=== PATIENT | female | born 1985 | race Caucasian/White ===

== ENCOUNTER 2018-06-07 23:25 | Emergency (ER) | payer OTHER ==
[2018-06-07] MEDS ORDERED: Ondansetron ODT TAB* 4 MG PO ONE (23:49)
[2018-06-07] MEDS ORDERED: NS 0.9% 1000 ML** 1,000 ML IV ONE (23:54)
[2018-06-07] MEDS ORDERED: Metoclopramide IV* 5 MG/ML 2 ML VIAL IV ONE (23:54)
--- NOTE | 2018-06-08 00:11 | ED ---
Nausea/Vomiting/Diarrhea HPI - HPI Summary HPI Summary: Patient presents of sudden onset nausea vomiting diarrhea and mild abdominal cramping with bowel movement starting this afternoon at 5 PM. Abdominal pain occurs just prior to need for bowel movement and is resolved with bowel movement. Complains of pain with urination starting today. Patient states she started taking amoxicillin this morning for ear infection, states she has taken it before without reaction. Family has had same food without reaction. States vomiting and diarrhea every 20 minutes, unable to hold down solids or fluids. Denies fever, sore throat, SILVERIO, neck stiffness, CP, SOB, vaginal symptoms. LMP active now. Medical history is none. Abdominal surgical history is none. - History of Current Complaint Chief Complaint: EDNauseaVomitDiarrh Stated Complaint: NAUSEA/VOMITING Time Seen by Provider: 06/07/18 23:46 Hx Obtained From: Patient Onset/Duration: Sudden Onset Severity Initially: Moderate Severity Currently: Moderate Pain Intensity: 8 Pain Scale Used: 0-10 Numeric Location: Diffuse Character: Cramping Aggravating Factor(s): Nothing Alleviating Factor(s): Nothing Vomiting Frequency: Every 15-60 minutes Vomiting Characteristics: Nonbilious Diarrhea Frequency: Every 15-60 minutes Diarrhea Characteristics: Watery - Allergies/Home Medications Allergies/Adverse Reactions: Allergies Allergy/AdvReac Type Severity Reaction Status Date / Time Sulfa (Sulfonamide Allergy Rash Verified 06/07/18 23:29 Antibiotics) Home Medications: Home Medications Amoxicillin PO (*) [Amoxicillin 875 MG (*)] 875 mg PO BID 06/08/18 [History Confirmed 06/08/18] Sertraline* [Zoloft*] 50 mg PO DAILY 06/08/18 [History Confirmed 06/08/18] PMH/Surg Hx/FS Hx/Imm Hx Endocrine/Hematology History: Denies: Hx Anticoagulant Therapy Cardiovascular History: Denies: Hx Cardiac Arrest History: Denies: Hx Dialysis Sensory History: Denies: Hx Eye Prosthesis Opthamlomology History: Denies: Hx Legally Blind EENT History: Denies: Hx Deafness Neurological History: Denies: Hx Dementia Psychiatric History: Denies: Hx Autism Infectious Disease History: No Infectious Disease History: Denies: Traveled Outside the [place] in Last 30 Days Review of Systems Constitutional: Negative Eyes: Negative ENT: Negative Cardiovascular: Negative Respiratory: Negative Positive: Abdominal Pain, Vomiting, Diarrhea, Nausea Positive: burning Musculoskeletal: Negative Skin: Negative Neurological: Negative Psychological: Normal All Other Systems Reviewed And Are Negative: Yes Physical Exam - Summary Physical Exam Summary: Abdomen mildly tender diffusely. Physical exam otherwise unremarkable. Triage Information Reviewed: Yes Vital Signs On Initial Exam: Initial Vitals Temp Pulse Resp BP Pulse Ox 99.6 F 110 20 112/77 98 06/07/18 23:27 06/07/18 23:27 06/07/18 23:27 06/07/18 23:27 06/07/18 23:27 Vital Signs Reviewed: Yes Appearance: Positive: Well-Appearing Skin: Positive: Warm Head/Face: Positive: Normal Head/Face Inspection Eyes: Positive: Normal Neck: Positive: Supple Respiratory/Lung Sounds: Positive: Clear to Auscultation Cardiovascular: Positive: Normal Abdomen Description: Positive: Other: Musculoskeletal: Positive: Normal Neurological: Positive: Normal Psychiatric: Positive: Normal AVPU Assessment: Alert - Bernie Coma Scale Best Eye Response: 4 - Spontaneous Best Motor Response: 6 - Obeys Commands Best Verbal Response: 5 - Oriented Coma Scale Total: 15 Diagnostics - Vital Signs Vital Signs Temp Pulse Resp BP Pulse Ox 06/07/18 23:27 99.6 F 110 20 112/77 98 - Laboratory Result Diagrams: 06/08/18 00:12 06/08/18 00:12 Lab Statement: Any lab studies that have been ordered have been reviewed, and results considered in the medical decision making process. Naus/Vom/Diarrhea Course/Dx - Course Course Of Treatment: Patient presents of sudden onset nausea vomiting diarrhea and mild abdominal cramping with bowel movement starting this afternoon at 5 PM. Abdominal pain occurs just prior to need for bowel movement and is resolved with bowel movement. Complains of pain with urination starting today. Patient states she started taking amoxicillin this morning for ear infection, states she has taken it before without reaction. Family has had same food without reaction. States vomiting and diarrhea every 20 minutes, unable to hold down solids or fluids. Denies fever, sore throat, SILVERIO, neck stiffness, CP, SOB, vaginal symptoms. LMP active now. Medical history is none. Abdominal surgical history is none. Physical exam:Abdomen mildly tender diffusely. Physical exam otherwise unremarkable. Mildly tachycardic at 110. Vital signs otherwise unremarkable. WBC 11.1. Left foot was unremarkable. Patient nausea controlled with Reglan 10 mg IV. 2 L normal saline given. Patient states she feels better. Rx for Zofran. Rx for azithromycin as patient feels may be reaction to the amoxicillin she started today. - Differential Dx/Diagnosis Provider Diagnosis: Nausea vomiting and diarrhea Discharge - Sign-Out/Discharge Documenting (check all that apply): Patient Departure Patient Received Moderate/Deep Sedation with Procedure: No - Discharge Plan Condition: Stable Disposition: HOME Prescriptions: Azithromycin 250 mg PO DAILY 5 Days #6 tablet Ondansetron ODT TAB* [Zofran 4 MG Odt TAB*] 4 mg PO Q8H PRN 4 Days #14 tab.odt PRN Reason: Nausea Patient Education Materials: Acute Nausea and Vomiting (ED), Acute Diarrhea (ED ), Dehydration (ED) Referrals: Daniel Nye MD [Primary Care Provider] - Additional Instructions: Drink plenty of fluids to maintain hydration. Be Zofran as directed for nausea. Follow-up with primary care. Return to the ED for any new or worsening symptoms. - Billing Disposition and Condition Condition: STABLE Disposition: Home
[2018-06-08 00:21] LABS: ABS Basophils 0 10^3/ul (0-0.2); ABS Eosinophils 0.1 10^3/ul (0-0.6); ABS Lymphocytes 0.3 10^3/ul (1.0-4.8); ABS Monocytes 0.3 10^3/ul (0-0.8); ABS Neutrophils 10.4 10^3/ul (1.5-7.7); ABS Nucleated RBC 0 10^3/ul; Eosinophil % 0.5 %; Hematocrit 38 % (35-47); Hemoglobin 12.8 g/dl (12.0-16.0); Lymphocyte % 2.3 %; Mean Corpuscular HGB Conc 34 g/dl (31-36); Mean Corpuscular Hemoglobin 30 pg (27-31); Mean Corpuscular Volume 88 fL (80-97); Mean Platelet Volume 7.6 fL (7.4-10.4); Nucleated Red Blood Cells % 0; Platelet Count 835 10^3/ul (150-450); Red Blood Count 4.36 10^6/ul (4.00-5.40); Red Cell Distribution Width 14 % (10.5-15); White Blood Count 11.1 10^3/ul (3.5-10.8)
[2018-06-08 00:37] LABS: ALT 16 U/L (7-52); AST 19 U/L (13-39); Albumin 4.3 g/dL (3.2-5.2); Albumin/Globulin Ratio 1.3 (1-3); Alkaline Phosphatase 58 U/L (34-104); Anion Gap 8 mmol/L (2-11); BUN/Creatinine Ratio 17.7 (8-20); Blood Urea Nitrogen 14 mg/dL (6-24); C Reactive Protein 27.11 mg/L (<8.01); CO2 Carbon Dioxide 25 mmol/L (22-32); Calcium 8.9 mg/dL (8.6-10.3); Chloride 105 mmol/L (101-111); EGFR African American 102.7 (>60); EGFR Non-African American 84.9 (>60); Globulin 3.2 g/dL (2-4); Glucose 165 mg/dL (70-100); Potassium 4.2 mmol/L (3.5-5.0); Sodium 138 mmol/L (135-145); Total Protein 7.5 g/dL (6.4-8.9)
[2018-06-08 00:43] LABS: HCG Pregnancy < 0.60 mIU/mL
[2018-06-08] MEDS ORDERED: NS 0.9% 1000 ML** 1,000 ML IV ONE (01:12)
[2018-06-08 01:33] LABS: Urine Appearance Cloudy; Urine Bilirubin Negative (Negative); Urine Blood Negative (Negative); Urine Color Yellow; Urine Glucose Negative (Negative); Urine Ketones 1+ (Negative); Urine Nitrite Negative (Negative); Urine Protein Negative (Negative); Urine Specific Gravity 1.025 (1.010-1.030); Urine Urobilinogen Negative (Negative)
[2018-06-08] MEDS ORDERED: Ondansetron INJ* 2 MG/ML VIAL IV ONE (01:50)
[2018-06-08 02:24] VITALS: BP 105/62
== END 2018-06-08 02:30 | disposition home or self-care (01) ==
LOC: ED 23:25
DX: R11.2 Nausea with vomiting, unspecified (principal); R19.7 Diarrhea, unspecified; H66.90 Otitis media, unspecified, unspecified ear; Z88.2 Allergy status to sulfonamides
CPT/HCPCS: 36415; 80053; 81003; 83605; 83690; 84702; 85025; 86140; 96374; 96375; 99283; J2405; J2765

== ENCOUNTER 2019-01-23 04:21 | Emergency (ER) | payer OTHER ==
--- OUTSIDE RECORDS SUMMARY | 2019-01-23 04:32 | XMS REPORT | Continuity of Care Document ---
:1985 External Reference #:[id number] Author Name Polina Interiano N.P. 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 Problems Provider Date Disturbance in sleep behavior Ariane Yeager MD Onset: 05/21/2016 Obstructive sleep apnea syndrome Arin Watkins DNP, RN, [employer] Onset: 11/2016 Hypersomnia Arin Watkins DNP, RN, [employer]SEMBL[employer] Onset: 06/19/2016 Social History Type Date Description Comments Sex Unknown Tobacco Use Start: Unknown Never Smoked Cigarettes Smoking Status Reviewed: 12/31/18 Never Smoked Cigarettes ETOH Use Rarely consumes alcohol Tobacco Use Start: Unknown Patient has never smoked Recreational Drug Use Sporadically uses Marijuana Exercise Type/Frequency Exercises rarely Allergies, Adverse Reactions, Alerts Active Allergies Reaction Severity Comments Date Sulfa Antibiotics 05/21/2016 Medications Active Medications SIG Qnty Indications Ordering Provider Date Sertraline HCL 1 by mouth every Unknown 50mg day Tablets Vitamin D 1 by mouth every Unknown (Cholecalciferol) day 1000Unit Capsules Flonase Allergy spray 1 spray in Unknown Relief each nostril twice 50mcg/Act daily Suspension Claritin-D 24 Hour 1 by mouth every Unknown day 10-240mg Tablets ER 24HR Melatonin ER take one Unknown 3mg tablet/capsule by Tablets ER mouth at bedtime. for insomnia Medications Administered in Office Medication SIG Qnty Indications Ordering Provider Date PPD Injection Asif Holman MD 03/20/2018 Immunizations Description No Information Available Vital Signs Date Vital Result Comment 12/31/2018 1:02pm Height 69 inches 5'9" Weight 218.00 lb Heart Rate 87 /min BP Systolic 112 mmHg BP Diastolic 76 mmHg O2 % BldC Oximetry 96 % BMI (Body Mass Index) 32.2 kg/m2 08/07/2016 10:18am Height 69 inches 5'9" Weight 189.00 lb Heart Rate 82 /min BP Systolic Sitting 118 mmHg BP Diastolic Sitting 60 mmHg Respiratory Rate 16 /min Pain Level 0 O2 % BldC Oximetry 98 % BMI (Body Mass Index) 27.9 kg/m2 Results Test Date Facility Test Result H/L Range Note Laboratory test 12/31/2018 [facility] <pending> finding [address]: [place] [address] [phone] Laboratory test 12/31/2018 [facility] <pending> finding [address] [place] [address] [phone] Procedures Description No Information Available Medical Devices Description No Information Available Encounters Description No Information Available Assessments Description No Information Available Plan of Treatment No Information Available Functional Status Description No Information Available Mental Status Description No Information Available Referrals Description No Information Available
--- NOTE | 2019-01-23 05:17 | ED ---
Back Pain - HPI Summary HPI Summary: This patient is a 33 year old female presenting to [facility] with a chief complaint of lumbar pain. 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 She states as she was walking she noticed the pain radiated into her hip, that she describes as a spasm. She states it is not nearly as painful as when it first happens. She states she took ibuprofen and iced the area. She states she has not had this problem before. She denies weakness or numbness. - History of Current Complaint Chief Complaint: EDBackInjuryPain Stated Complaint: BACK INJURY PER PT Time Seen by Provider: 01/23/19 05:05 Hx Obtained From: Patient Onset/Duration: Lasting Hours Onset/Duration: Started Hours Ago Pain Intensity: 4 Pain Scale Used: 0-10 Numeric Aggravating Symptom(s): Lifting Alleviating Symptom(s): Cold, OTC Meds - Allergies/Home Medications Allergies/Adverse Reactions: Allergies Allergy/AdvReac Type Severity Reaction Status Date / Time Sulfa (Sulfonamide Allergy Rash Verified 01/23/19 04:26 Antibiotics) PMH/Surg Hx/FS Hx/Imm Hx Endocrine/Hematology History: Denies: Hx Anticoagulant Therapy Cardiovascular History: Denies: Hx Cardiac Arrest History: Denies: Hx Dialysis Sensory History: Denies: Hx Eye Prosthesis, Hx Legally Blind, Hx Deafness Opthamlomology History: Denies: Hx Eye Prosthesis, Hx Legally Blind Neurological History: Denies: Hx Dementia Psychiatric History: Denies: Hx Autism Infectious Disease History: No Infectious Disease History: Denies: Traveled Outside the [place] in Last 30 Days - Family History Known Family History: Negative: Cardiac Disease - Social History Alcohol Use: Rare Substance Use Type: Reports: Marijuana Smoking Status (MU): Never Smoked Tobacco Review of Systems Positive: Other - Back pain Negative: Weakness, Numbness All Other Systems Reviewed And Are Negative: Yes Physical Exam - Summary Physical Exam Summary: General: Well-developed, Well-nourished FEMALE. No acute distress. HEENT: Normocephalic, Atraumatic. Eyes: Conjuctiva normal, PERRL. Ears: TMs within normal limits. Nares: (-) discharge, (-) erythema. Oropharynx: Clear, mucous membranes moist, (-) exudates. Neck: Soft, FROM, (-) lymphadenopathy, (-) thyromegaly, (-) JVD. Cardiovascular: Normal sinus rhythm, (-) murmur. Lungs: Clear to auscultation bilaterally (-) wheezes, (-) rales, (-) rhonchi. Abdomen: Soft, non-tender, non-distended, (-) organomegaly, normal bowel sounds. Back: Lumbar tenderness. Extremities: No edema. Skin: Warm, dry, (-) rash. Neuro: Alert and oriented x3, no focal deficits. Psychiatric: Mood normal, affect normal. Triage Information Reviewed: Yes Vital Signs On Initial Exam: Initial Vitals Temp Pulse Resp BP Pulse Ox 98.3 F 70 16 114/73 99 01/23/19 04:23 01/23/19 04:23 01/23/19 04:23 01/23/19 04:23 01/23/19 04:23 Vital Signs Reviewed: Yes Procedures - Sedation Patient Received Moderate/Deep Sedation with Procedure: No Diagnostics - Vital Signs Vital Signs Temp Pulse Resp BP Pulse Ox 01/23/19 04:23 98.3 F 70 16 114/73 99 - Laboratory Lab Statement: Any lab studies that have been ordered have been reviewed, and results considered in the medical decision making process. Back Pain Course/Dx - Course Course Of Treatment: This patient is a 33 year old female presenting to [facility] with a chief complaint of lumbar pain. She states the pain has already resolved , with the help of OTC meds. She was advised to take 2 ibuprofen tables 3 times a day in order to manage the pain. A plan for discharge was discussed with the patient and she was agreeable with this plan. - Diagnoses Provider Diagnoses: Low back pain Discharge ED - Sign-Out/Discharge Documenting (check all that apply): Patient Departure - Discharge - Discharge Plan Condition: Stable Disposition: HOME Patient Education Materials: Acute Low Back Pain (ED) Referrals: Daniel Nye MD [Primary Care Provider] - Additional Instructions: Take ibuprofen 2 tablets 3 times per day. Return to ED with any new or worsening symptoms. - Billing Disposition and Condition Condition: STABLE Disposition: Home - Attestation Statements Document Initiated by Scribe: Yes Documenting Scribe: Samir Carmona Provider For Whom Scribe is Documenting (Include Credential): Claritza Samson MD Scribe Attestation: Samir Beltrán, scribed for Claritza Samson MD on 01/23/19 at 0541. Scribe Documentation Reviewed: Yes Provider Attestation: The documentation as recorded by the scribe, Samir Carmona accurately reflects the service I personally performed and the decisions made by me, Claritza Samson MD Status of Scribe Document: Viewed
[2019-01-23] MEDS ORDERED: Ondansetron ODT TAB* 4 MG PO PRN (05:20)
[2019-01-23 05:26] VITALS: BP 137/82
[2019-01-23] MEDS ORDERED: Amoxicillin PO (*) 875 MG TAB PO SCH (09:00)
[2019-01-23] MEDS ORDERED: Sertraline* 50 MG TAB PO SCH (09:00)
[2019-01-23] MEDS ORDERED: Azithromyxin PAK (NF) 250 MG TAB PO SCH (09:00)
== END 2019-01-23 05:25 | disposition home or self-care (01) ==
LOC: ED 04:21
DX: M54.5 Low back pain (principal); Z88.2 Allergy status to sulfonamides
CPT/HCPCS: 99281

== ENCOUNTER 2019-04-16 13:53 | Emergency (ER) | payer OTHER ==
[2019-04-16] MEDS ORDERED: Tetan/Diph/Pertus SYR(Tdap)* 0.5 ML SYR(BOOSTRIX) use SYR contains LATEX IM ONE (14:12)
[2019-04-16] MEDS ORDERED: Ibuprofen TAB* 600 MG PO ONE (14:12)
--- NOTE | 2019-04-16 14:15 | ED ---
Laceration/Wound HPI - HPI Summary HPI Summary: The patient is a 34 y/o F presenting to [facility] accompanied by mother with a chief complaint of laceration to the left dorsal hand onset 30 minutes [employer]CRETE [employer]. She reports that she had dropped a glass jar on the floor which broke, and when she was picking up the glass when a piece slipped and cut her dorsal hand proximal to the thumb. She has placed a wrap and applied pressure to stop the bleeding. She denies any numbness or tingling. Pain rated 4/10 in severity. Movement aggravates the pain, but there is no decreased ROM. No medications CONCRETE POINTER as treatment. PMHx: depression, sinus surgery. Nonsmoker, occasional EtOH, occasional marijuana use. Medications reviewed. Allergies noted. - History of Current Complaint Stated Complaint: LAC ON LEFT HAND PER PT Time Seen by Provider: 04/16/19 14:06 Hx Obtained From: Patient Mechanism of Injury: Sharp/Blunt Trauma - glass Onset/Duration: Sudden Onset, Still Present Aggravating: Movement Alleviating: Compression Timing: Constant Onset Severity: Moderate Current Severity: Moderate Pain Intensity: 4 Pain Scale Used: 0-10 Numeric Associated Signs & Symptoms: Negative - Allergy/Home Medications Allergies/Adverse Reactions: Allergies Allergy/AdvReac Type Severity Reaction Status Date / Time Sulfa (Sulfonamide Allergy Rash Verified 04/16/19 13:57 Antibiotics) PMH/Surg Hx/FS Hx/Imm Hx Endocrine/Hematology History: Denies: Hx Anticoagulant Therapy Cardiovascular History: Denies: Hx Cardiac Arrest History: Denies: Hx Dialysis Sensory History: Denies: Hx Eye Prosthesis, Hx Legally Blind, Hx Deafness Opthamlomology History: Denies: Hx Eye Prosthesis, Hx Legally Blind Neurological History: Denies: Hx Dementia Psychiatric History: Reports: Hx Depression Denies: Hx Autism - Surgical History Surgical History: Yes Surgery Procedure, Year, and Place: sinus surgery Infectious Disease History: No Infectious Disease History: Denies: Traveled Outside the [place] in Last 30 Days - Family History Known Family History: Negative: Cardiac Disease - Social History Alcohol Use: Occasionally Hx Substance Use: Yes Substance Use Type: Reports: Marijuana Hx Tobacco Use: No Smoking Status (MU): Never Smoked Tobacco Review of Systems Negative: Decreased ROM Positive: Other - laceration to dorsal left hand Negative: Paresthesia - in left hand, Numbness - in left hand All Other Systems Reviewed And Are Negative: Yes Physical Exam - Summary Physical Exam Summary: Constitutional: Well-developed, Well-nourished, Alert. (-) Distressed Skin: Warm, Dry; 3cm laceration just proximal to the thumb of the left hand on the dorsal aspect HENT: Normocephalic; Atraumatic Eyes: Conjunctiva normal Neck: Musculoskeletal ROM normal neck. (-) JVD, (-) Stridor, (-) Tracheal deviation Cardio: Rhythm regular, rate normal, Heart sounds normal; Intact distal pulses; Radial pulses are 2+ and symmetric. (-) Murmur Pulmonary/Chest wall: Effort normal. (-) Respiratory distress, (-) Wheezes, (-) Rales Abd: Soft, (-) tenderness, (-) Distension, (-) Guarding, (-) Rebound Musculoskeletal: (-) Edema, FROM of left hand and thumb Lymph: (-) Cervical adenopathy Neuro: Alert, Oriented x3 Psych: Mood and affect Normal Triage Information Reviewed: Yes Vital Signs On Initial Exam: Initial Vitals Temp Pulse Resp BP Pulse Ox 98.1 F 73 14 127/71 98 04/16/19 13:54 04/16/19 13:54 04/16/19 13:54 04/16/19 13:54 04/16/19 13:54 Vital Signs Reviewed: Yes Procedures - Sedation Patient Received Moderate/Deep Sedation with Procedure: No - Laceration/Wound Repair 1 Location: upper extremity - left hand, dorsal aspect proximal to thumb Description: Linear Anesthesia: 1.0%, Lido - 2.5ccs Length, Depth and Shape: 3 cm Laceration/Wound Explored: clean Suture Type: Prolene - 5-0 Number of Sutures: 4 - uninterrupted Diagnostics - Vital Signs Vital Signs Temp Pulse Resp BP Pulse Ox 04/16/19 13:54 98.1 F 73 14 127/71 98 - Laboratory Lab Statement: Any lab studies that have been ordered have been reviewed, and results considered in the medical decision making process. Re-Evaluation - Re-Evaluation First Eval Re-Evaluation Time: 14:15 Comment: Lac repair performed (see procedure note); patient tolerated well. Discussed discharge plan. Laceration Repair Course/Dx - Course Course Of Treatment: Patient's [facility] a laceration just proximal to her thumb on her left hand. Patient has no evidence of tendon involvement. Patient is neurovasculary intact. Patient was given tetanus. Patient had successful repair of her laceration. - Clinical Impression Provider Diagnoses: Hand laceration Discharge ED - Sign-Out/Discharge Documenting (check all that apply): Patient Departure - Patient will be discharged home. - Discharge Plan Condition: Good Disposition: HOME Patient Education Materials: Care For Your Stitches (DC), Laceration (DC) Referrals: Daniel Nye MD [Primary Care Provider] - 7 Days Additional Instructions: Return either to the emergency department, to your primary care provider, or to convenient care in 7 days to have stitches removed. You can wash the stitches with soap and water, but keep them dry during the day. Come back to the emergency department for any worsening redness, swelling, or pus draining out of the wound. Take Tylenol and Ibuprofen for pain. - Billing Disposition and Condition Condition: GOOD Disposition: Home - Attestation Statements Document Initiated by Mingibmarielos: Yes Documenting Scribe: Bhavna Wang Provider For Whom [place] is Documenting (Include Credential): Dr. Mehran Hutson MD Scribe Attestation: Bhavna Beltrán, scribed for Dr. Mehran Hutson MD on 04/16/19 at 1448. Scribe Documentation Reviewed: Yes Provider Attestation: The documentation as recorded by the Bhavna carranza accurately reflects the service I personally performed and the decisions made by me, Dr. Mehran Hutson MD Status of Scribe Document: Viewed
[2019-04-16 15:03] VITALS: BP 124/68
== END 2019-04-16 14:53 | disposition home or self-care (01) ==
LOC: ED 13:53
DX: S61.412A Laceration without foreign body of left hand, initial encounter (principal); W25.XXXA Contact with sharp glass, initial encounter; Y92.9 Unspecified place or not applicable; F32.9 Major depressive disorder, single episode, unspecified
CPT/HCPCS: 12002; 90471; 90715; 99282; A9270-GY

== ENCOUNTER 2019-04-24 14:58 | Emergency (ER) | payer OTHER ==
--- NOTE | 2019-04-24 15:24 | ED ---
ED Suture/Wound Check - HPI Summary HPI Summary: This pt is a 34 Y/O F presenting to [facility] with a CC of a stitch removal. The pt states that her stitches have been in for the recommended length of time. She denies any fevers, chills, N/V, headaches, SOB, and CP. She states that she has no pain. She has no aggravating or alleviating factors. She has a PMHx of a laceration on her L hand that needed stitches. - History Of Current Complaint Chief Complaint: EDLacSutureRecheck Stated Complaint: SUTURE REMOVAL Time Seen by Provider: 04/24/19 15:17 Hx Obtained From: Patient Onset/Duration: Lasting Days - 8, Still Present Surgical Site: L hand Pain Intensity: 0 Pain Scale Used: 0-10 Numeric Procedure Type: Stitch removal Surgery Date: 04/24/19 - Allergies/Home Medications Allergies/Adverse Reactions: Allergies Allergy/AdvReac Type Severity Reaction Status Date / Time Sulfa (Sulfonamide Allergy Rash Verified 04/24/19 15:13 Antibiotics) PMH/Surg Hx/FS Hx/Imm Hx Previously Healthy: Yes Endocrine/Hematology History: Denies: Hx Anticoagulant Therapy Cardiovascular History: Denies: Hx Cardiac Arrest History: Denies: Hx Dialysis Sensory History: Denies: Hx Eye Prosthesis, Hx Legally Blind, Hx Deafness Opthamlomology History: Denies: Hx Eye Prosthesis, Hx Legally Blind Neurological History: Denies: Hx Dementia Psychiatric History: Reports: Hx Depression Denies: Hx Autism - Cancer History Hx Chemotherapy: No Hx Radiation Therapy: No - Surgical History Surgical History: Yes Surgery Procedure, Year, and Place: sinus surgery - Immunization History Immunizations Up to Date: Yes Infectious Disease History: No Infectious Disease History: Denies: Traveled Outside the [place] in Last 30 Days - Family History Known Family History: Negative: Cardiac Disease - Social History Occupation: Employed Full-time Lives: With Family Alcohol Use: Occasionally Hx Substance Use: Yes Substance Use Type: Reports: Marijuana Hx Tobacco Use: No Smoking Status (MU): Never Smoked Tobacco Review of Systems Negative: Fever, Chills Negative: Chest Pain Negative: Shortness Of Breath Negative: Vomiting, Nausea Skin: Other - stitches present on her L hand Negative: Headache All Other Systems Reviewed And Are Negative: Yes Physical Exam - Summary Physical Exam Summary: VITAL SIGNS: Reviewed. GENERAL: Patient is a well-developed and nourished female who is lying comfortable in the stretcher. Patient is not in any acute respiratory distress. HEAD AND FACE: No signs of trauma. No ecchymosis, hematomas or skull depressions. No sinus tenderness. EYES: PERRLA, EOMI x 2, No injected conjunctiva, no nystagmus. EARS: Hearing grossly intact. Ear canals and tympanic membranes are within normal limits. MOUTH: Oropharynx within normal limits. NECK: Supple, trachea is midline, no adenopathy, no JVD, no carotid bruit, no c- spine tenderness, neck with full ROM. CHEST: Symmetric, no tenderness at palpation LUNGS: Clear to auscultation bilaterally. No wheezing or crackles. CVS: Regular rate and rhythm, S1 and S2 present, no murmurs or gallops appreciated. ABDOMEN: Soft, non-tender. No signs of distention. No rebound no guarding, and no masses palpated. Bowel sounds are normal. EXTREMITIES: FROM in all major joints, no edema, no cyanosis or clubbing. NEURO: Alert and oriented x 3. No acute neurological deficits. Speech is normal and follows commands. SKIN: Dry and warm. She has 3 stitches present on the L dorsal aspect of her hand. Surrounding errythema Triage Information Reviewed: Yes Vital Signs On Initial Exam: Initial Vitals Temp Pulse Resp BP Pulse Ox 98.6 F 85 16 113/67 96 04/24/19 15:09 04/24/19 15:09 04/24/19 15:09 04/24/19 15:09 04/24/19 15:09 Vital Signs Reviewed: Yes Procedures - Sedation Patient Received Moderate/Deep Sedation with Procedure: No Diagnostics - Vital Signs Vital Signs Temp Pulse Resp BP Pulse Ox 04/24/19 15:09 98.6 F 85 16 113/67 96 - Laboratory Lab Statement: Any lab studies that have been ordered have been reviewed, and results considered in the medical decision making process. Re-Evaluation - Re-Evaluation First Eval Re-Evaluation Time: 15:29 Change: Improved Comment: The pt's stitches were removed without complication. Wound is healing nicely and requires no further care at this time. Course/Dx - Course Assessment/Plan: This pt is a 34 Y/O F presenting to [facility] with a CC of a stitch removal. The pt states that her stitches have been in for the recommended length of time. She denies any fevers, chills, N/V, headaches, SOB, and CP. She states that she has no pain. She has no aggravating or alleviating factors. She has a PMHx of Depression. Sutures were removed without any complications. There is no signs of infection. Patient will be discharged home with follow-up with PCP. - Clinical Impression Provider Diagnoses: Visit for suture removal Discharge ED - Sign-Out/Discharge Documenting (check all that apply): Patient Departure - discharge - Discharge Plan Condition: Stable Disposition: HOME Patient Education Materials: Stitches Removal (ED) Referrals: Daniel Nye MD [Primary Care Provider] - 2 Days Additional Instructions: PLEASE RETURN TO THE ED IMMEDIATELY FOR WORSENING OR CONCERNING SYMPTOMS AND FOLLOW UP WITH YOUR PRIMARY CARE PHYSICIAN IN 1-3 DAYS. - Billing Disposition and Condition Condition: STABLE Disposition: Home - Attestation Statements Document Initiated by Austin: Yes Documenting Scribe: Alonso Parrish Provider For Whom Austin is Documenting (Include Credential): Douglas Ramachandran MD Scribe Attestation: Alonso Beltrán, scribed for Douglas Ramachandran MD on 04/24/19 at 1813. Scribe Documentation Reviewed: Yes Provider Attestation: The documentation as recorded by the Alonso carranza accurately reflects the service I personally performed and the decisions made by , Douglas Ramachandran MD Status of Scribe Document: Viewed
[2019-04-24 15:37] VITALS: BP 130/76
== END 2019-04-24 15:36 | disposition home or self-care (01) ==
LOC: ED 14:58
DX: S61.412D Laceration without foreign body of left hand, subsequent encounter (principal); W45.8XXD Other foreign body or object entering through skin, subsequent encounter; Z88.2 Allergy status to sulfonamides
CPT/HCPCS: 99281